=== PATIENT | male | born 1950 | race Asian ===

== ENCOUNTER 2016-09-26 11:52 | Emergency (ER) | payer OTHER ==
[~2016-09-26] VITALS: Ht 154.9 cm; Wt 72.6 kg
[~2016-09-26 11:52] MED LIST: DIPH-121 PO; ONDA4TAB10 SL
[2016-09-26 12:07] VITALS: BP 117/70
[2016-09-26] MEDS ORDERED: PRED-220 PO (12:35)
[2016-09-26] MEDS ORDERED: HYDR25CA75 PO (12:35)
[2016-09-26] MEDS ORDERED: MUPI22OI2 TP (12:35)
--- NOTE | 2016-09-26 12:35 | PHYS DOC ---
Past Medical History Past Medical History: No Pertinent History Past Surgical History: No Surgical History Alcohol Use: Occasionally Drug Use: None Adult General Chief Complaint Chief Complaint: SKIN RASH/ABSCESS [facility] HPI Patient is a 66 year old male presents emergency Department with a rash to his upper trunk, predominantly in his armpits into his face that began approximately 3 days ago. Patient reports that the rash itches. Patient denies any contact with anyone else with similar rash. He denies sleeping any different beds or locations. He denies any changes to his personal hygiene or laundry products. Patient himself does not have a history of atopy. Review of Systems Review of Systems Constitutional: Denies fever or chills [] Eyes: Denies change in visual acuity, redness, or eye pain [] HENT: Denies nasal congestion or sore throat [] Respiratory: Denies cough or shortness of breath [] Cardiovascular: No additional information not addressed in HPI [] GI: Denies abdominal pain, nausea, vomiting, bloody stools or diarrhea [] : Denies dysuria or hematuria [] Musculoskeletal: Denies back pain or joint pain [] Integument: Denies rash or skin lesions [] Neurologic: Denies headache, focal weakness or sensory changes [] Endocrine: Denies polyuria or polydipsia [] Allergies Allergies Allergies Coded Allergies Type Severity Reaction Last Updated Verified No Known Drug Allergies 03/23/16 No Physical Exam Physical Exam Constitutional: Well developed, well nourished, no acute distress, non-toxic appearance. [] HENT: Normocephalic, atraumatic, bilateral external ears normal, oropharynx moist, no oral exudates, nose normal. [] Eyes: PERRLA, EOMI, conjunctiva normal, no discharge. [] Neck: Normal range of motion, no tenderness, supple, no stridor. [] Cardiovascular:Heart rate regular rhythm, no murmur [] Lungs & Thorax: Bilateral breath sounds clear to auscultation [] Abdomen: Bowel sounds normal, soft, no tenderness, no masses, no pulsatile masses. [] Skin: Patches of raised, slightly erythematous skin to the patient's anterior trunk, predominantly in the anterior axillary regions and also slightly laterally to the chest melara. There is also some similar lesions to the anterior chest, bilateral upper arms from the patient's neck. There are no areas of coalescence. The rash is excoriated by itching. Back: No tenderness, no CVA tenderness. [] Extremities: No tenderness, no cyanosis, no clubbing, ROM intact, no edema. [] Neurologic: Alert and oriented X 3, normal motor function, normal sensory function, no focal deficits noted. [] Psychologic: Affect normal, judgement normal, mood normal. [] Current Patient Data Vital Signs Vital Signs Date Time Temp Pulse Resp B/P Pulse Ox O2 Delivery O2 Flow Rate FiO2 09/26/16 12:07 97.9 82 14 96 Room Air 97.9 EKG EKG [] Radiology/Procedures Radiology/Procedures [] Course & Med Decision Making Course & Med Decision Making Pertinent Labs and Imaging studies reviewed. (See chart for details) [] Dragon Disclaimer Dragon Disclaimer This electronic medical record was generated, in whole or in part, using a voice recognition dictation system. Departure Departure Impression: Primary Impression: Contact dermatitis Disposition: HOME, SELF-CARE Condition: GOOD Referrals: MYCHAL SHERIFF MD (PCP) Patient Instructions: Contact Dermatitis, [id number] Additional Instructions: 1. Take the medication as prescribed. 2. Avoid hot showers or hot baths as they can make the rash worse. Also avoid scratching as much as possible. 3. Review the discharge instructions for self-care and reasons to return the emergency department. 4. Follow-up with primary care doctor next week for reevaluation. Scripts Mupirocin (Mupirocin Ointment)22 Gm Oint...g.1 Soto TP TID WOUND CARE #1 TUBE Prov:ARMAND PARK 09/26/16 Hydroxyzine Pamoate 25 Mg [id number] Mg PO QID itching #20 CAP Prov:ARMAND PARK 09/26/16 Prednisone 10 Mg [id number] Mg PO UD PREDNISONE TAPER #39 TAB Ref 0 Take 3 tablets by mouth twice a day for 3 days, then take 2 tablets by mouth twice a day for 3 days, then take 1 tablet by mouth twice a day for 3 days, then take 1 tablet by mouth daily x 3 days, then stop. Prov:ARMAND PARK 09/26/16 ARMAND PARK Sep 26, 2016 12:35
== END 2016-09-26 13:01 | disposition home or self-care (01) ==
LOC: ER 11:52
DX: L25.9 Unspecified contact dermatitis, unspecified cause (principal)
CPT/HCPCS: 99283

== ENCOUNTER 2017-03-16 22:56 | Emergency (ER) | payer OTHER ==
[~2017-03-16] VITALS: Ht 162.6 cm; Wt 77.1 kg
[~2017-03-16 22:56] MED LIST changes: +HYDR25CA75 PO; +MUPI22OI2 TP; +PRED-220 PO
[2017-03-17] MEDS ORDERED: ONDANSETRON ODT 4 MG TAB.RAPDIS. PO ONE (00:15)
[2017-03-17] MEDS ORDERED: IV NORMAL SALINE 1000ML BAG 1,000 ML IV ONE ×3 (00:15→00:30)
[2017-03-17 00:29] LABS: BASO % 0 % (0-3); EOS % 1 % (0-3); HEMATOCRIT 45.6 % (39.0-53.0); HEMOGLOBIN 15.6 g/dL (13.0-17.5); LYMPH # 1.4 x10^3/uL (1.0-4.8); LYMPH % 6 % (24-48); MEAN CORPUSCULAR HEMOGLOBIN 32 pg (25-35); MEAN CORPUSCULAR HGB CONC 34 g/dL (31-37); MEAN CORPUSCULAR VOLUME 93 fL (79-100); MONO % 8 % (0-9); NEUT % 86 % (31-73); PLATELET COUNT 290 x10^3/uL (140-400); RED BLOOD COUNT 4.93 x10^6/uL (4.30-5.70); RED CELL DISTRIBUTION WIDTH 14.6 % (11.5-14.5)
[2017-03-17 00:34] LABS: BILIRUBIN,URINE NEGATIVE (NEG); GLUCOSE,URINE NEGATIVE (NEG); NITRITE,URINE NEGATIVE (NEG); PROTEIN,URINE 30 mg/dL (NEG-TRACE); UROBILINOGEN,URINE 0.2 mg/dL (0.2 mg/dL)
[2017-03-17 00:36] LABS: BACTERIA,URINE 0 /HPF (0-FEW); CREATININE 0.9 mg/dL (0.7-1.3); POTASSIUM 3.7 mmol/L (3.5-5.1); RBC,URINE OCC /HPF (0-2); SQUAMOUS EPITHELIAL CELL,UR FEW /LPF
[2017-03-17 00:42] LABS: ALBUMIN 3.9 g/dL (3.4-5.0); ALBUMIN/GLOBULIN RATIO 0.9 (1.0-1.7); TOTAL BILIRUBIN 0.7 mg/dL (0.2-1.0); TOTAL PROTEIN 8.2 g/dL (6.4-8.2)
[2017-03-17] MEDS ORDERED: ONDANSETRON PF 4 MG/2 ML VIAL. IV ONE (00:45)
[2017-03-17] MEDS ORDERED: ONDA4TAB10 SL (00:55)
[2017-03-17] MEDS ORDERED: HYOS0.1265 SL (00:55)
--- NOTE | 2017-03-17 00:55 | PHYS DOC ---
Past Medical History Past Medical History: No Pertinent History Past Surgical History: No Surgical History Alcohol Use: Occasionally Drug Use: None Adult General Chief Complaint Chief Complaint: ABDOMINAL PAIN HPI HPI 66-year-old Lebanese male with no chronic medical history now presents to the emergency department after nausea vomiting and diarrhea since 6 PM tonight. Patient was feeling well earlier today. He denies fevers chills sweats or shaking chills. He has no chronic medical problems or prior abdominal surgeries. His abdominal pain is crampy and intermittent and is now resolved. Review of Systems Review of Systems Constitutional: Denies fever or chills [] Eyes: Denies change in visual acuity, redness, or eye pain [] HENT: Denies nasal congestion or sore throat [] Respiratory: Denies cough or shortness of breath [] Cardiovascular: No additional information not addressed in HPI [] GI: Denies abdominal pain, nausea, vomiting, bloody stools or diarrhea [] : Denies dysuria or hematuria [] Musculoskeletal: Denies back pain or joint pain [] Integument: Denies rash or skin lesions [] Neurologic: Denies headache, focal weakness or sensory changes [] Endocrine: Denies polyuria or polydipsia [] Current Medications Current Medications Current Medications Medications (Trade) Dose Ordered Sig/Brad Start Time Stop Time Status Last Admin Dose Admin Info (Do NOT chart on this entry -- for MONITORING) 1 each PRN DAILY PRN 03/17/17 01:00 03/19/17 00:59 Iohexol (Omnipaque 300 Mg/ml) 75 ml 1X ONCE 03/17/17 01:00 03/17/17 01:01 DC 03/17/17 01:17 75 ML Ondansetron HCl (Zofran Odt) 4 mg 1X ONCE 03/17/17 00:15 03/17/17 00:19 DC Ondansetron HCl (Zofran) 4 mg 1X ONCE 03/17/17 00:45 03/17/17 00:46 DC 03/17/17 00:42 4 MG Sodium Chloride 1,000 ml @ 999 mls/hr 1X ONCE 03/17/17 00:30 03/17/17 01:30 DC 03/17/17 00:42 999 MLS/HR Allergies Allergies Allergies Coded Allergies Type Severity Reaction Last Updated Verified No Known Drug Allergies 03/23/16 No Physical Exam Physical Exam Well-appearing 66-year-old Lebanese male no acute distress resting comfortably alert communicative cooperative and appropriate. Clear lungs regular rate and rhythm no tachycardia no focal abdominal tenderness non-distended no mass or megaly normal bowel sounds no CVA tenderness benign abdominal exam. No inguinal mass or hernia. Constitutional: Well developed, well nourished, no acute distress, non-toxic appearance. [] HENT: Normocephalic, atraumatic, bilateral external ears normal, oropharynx moist, no oral exudates, nose normal. [] Eyes: PERRLA, EOMI, conjunctiva normal, no discharge. [] Neck: Normal range of motion, no tenderness, supple, no stridor. [] Cardiovascular:Heart rate regular rhythm, no murmur [] Lungs & Thorax: Bilateral breath sounds clear to auscultation [] Abdomen: Bowel sounds normal, soft, no tenderness, no masses, no pulsatile masses. [] Skin: Warm, dry, no erythema, no rash. [] Back: No tenderness, no CVA tenderness. [] Extremities: No tenderness, no cyanosis, no clubbing, ROM intact, no edema. [] Neurologic: Alert , no focal deficits noted. [] Psychologic: Affect normal, judgement normal, mood normal. [] Current Patient Data Vital Signs Vital Signs Date Time Temp Pulse Resp B/P (MAP) Pulse Ox O2 Delivery O2 Flow Rate FiO2 03/17/17 01:30 103 20 108/56 (73) 98 Room Air 03/17/17 01:00 2.0 03/16/17 23:27 98.5 98.5 Lab Values Laboratory Tests Test 03/17/17 00:01 White Blood Count 24.0 x10^3/uL (4.0-11.0) H Red Blood Count 4.93 x10^6/uL (4.30-5.70) Hemoglobin 15.6 g/dL (13.0-17.5) Hematocrit 45.6 % (39.0-53.0) Mean Corpuscular Volume 93 fL (79-100) Mean Corpuscular Hemoglobin 32 pg (25-35) Mean Corpuscular Hemoglobin Concent 34 g/dL (31-37) Red Cell Distribution Width 14.6 % (11.5-14.5) H Platelet Count 290 x10^3/uL (140-400) Neutrophils (%) (Auto) 86 % (31-73) H Lymphocytes (%) (Auto) 6 % (24-48) L Monocytes (%) (Auto) 8 % (0-9) Eosinophils (%) (Auto) 1 % (0-3) Basophils (%) (Auto) 0 % (0-3) Neutrophils # (Auto) 20.6 x10^3uL (1.8-7.7) H Lymphocytes # (Auto) 1.4 x10^3/uL (1.0-4.8) Monocytes # (Auto) 1.9 x10^3/uL (0.0-1.1) H Eosinophils # (Auto) 0.1 x10^3/uL (0.0-0.7) Basophils # (Auto) 0.0 x10^3/uL (0.0-0.2) Platelet Estimate Pending Urine Collection Type Clean catch Urine Color Yellow Urine Clarity Clear Urine pH 6.0 Urine Specific [place] 1.020 Urine Protein 30 mg/dL (NEG-TRACE) Urine Glucose (UA) Negative mg/dL (NEG) Urine Ketones (Stick) Negative mg/dL (NEG) Urine Blood Negative (NEG) Urine Nitrite Negative (NEG) Urine Bilirubin Negative (NEG) Urine Urobilinogen Dipstick 0.2 mg/dL (0.2 mg/dL) Urine Leukocyte Esterase Negative (NEG) Urine RBC Occ /HPF (0-2) Urine WBC 1-4 /HPF (0-4) Urine Squamous Epithelial Cells Few /LPF Urine Bacteria 0 /HPF (0-FEW) Urine Hyaline Casts Few /HPF Urine Mucus Marked /LPF Sodium Level 142 mmol/L (136-145) Potassium Level 3.7 mmol/L (3.5-5.1) Chloride Level 104 mmol/L (98-107) Carbon Dioxide Level 27 mmol/L (21-32) Anion Gap 11 (6-14) Blood Urea Nitrogen 17 mg/dL (8-26) Creatinine 0.9 mg/dL (0.7-1.3) Estimated GFR (Cockcroft-Gault) 85.0 BUN/Creatinine Ratio 19 (6-20) Glucose Level 109 mg/dL (70-99) H Calcium Level 9.0 mg/dL (8.5-10.1) Total Bilirubin 0.7 mg/dL (0.2-1.0) Aspartate Amino Transferase (AST) 31 U/L (15-37) Alanine Aminotransferase (ALT) 30 U/L (16-63) Alkaline Phosphatase 50 U/L (46-116) Total Protein 8.2 g/dL (6.4-8.2) Albumin 3.9 g/dL (3.4-5.0) Albumin/Globulin Ratio 0.9 (1.0-1.7) L Lipase 202 U/L (73-393) Laboratory Tests 03/17/17 00:01 Laboratory Tests 03/17/17 00:01 EKG EKG [] Radiology/Procedures Radiology/Procedures [] Course & Med Decision Making Course & Med Decision Making Pertinent Labs and Imaging studies reviewed. (See chart for details) Signs and symptoms consistent with gastroenteritis. Hemodynamically stable patient. IV fluids administered as well as Zofran. No active vomiting on reevaluation. No point tenderness of the abdomen. Patient is well-appearing with moist mucous membranes on reevaluation. CT of the abdomen and pelvis pending if results are unremarkable default diagnosis of viral gastroenteritis. We'll prescribe Zofran. Patient aware to drink plenty of fluids and follow-up with his doctor tomorrow. No further workup or treatment will be indicated and strict return precautions will be given. [] Dragon Disclaimer Dragon Disclaimer This electronic medical record was generated, in whole or in part, using a voice recognition dictation system. Departure Departure Impression: Primary Impression: Viral gastroenteritis Additional Impressions: Abdominal pain Diverticulosis Disposition: HOME, SELF-CARE Condition: IMPROVED Referrals: MYCHAL SHERIFF MD (PCP) Patient Instructions: Viral Gastroenteritis Additional Instructions: You have viral gastroenteritis. This is a viral syndrome that causes nausea and vomiting as well as crampy abdominal pain. Rest and drink plenty of fluids. Use Zofran under your tongue every 4 hours if needed for nausea as well as Levsin under your tongue times a day if needed for crampy abdominal pain. Follow-up with your doctor tomorrow and return immediately for new severe or worsening symptoms Scripts Ondansetron (ZOFRAN ODT) 4 Mg Tab.rapdis 1 TAB SL Q4HRS Y for VOMITING, #15 TAB Prov: LAUREN SPRINGER MD 03/17/17 Hyoscyamine Sulfate (LEVSIN-SL) 0.125 Mg Tab.subl 0.125 MG SL TID Y for crampy abdominal pain, #21 TAB Prov: LAUREN SPRINGER MD 03/17/17 Problem Qualifiers LAUREN SPRINGER MD Mar 17, 2017 00:55
[2017-03-17] MEDS ORDERED: CONTRAST GIVEN MC PRN (01:00)
[2017-03-17] MEDS ORDERED: IOHEXOL 300 MG/ML 75 ML VIAL IV ONE (01:00)
--- NOTE | 2017-03-17 01:59 | RAD ---
PQRS Compliance Statement: One or more of the following individualized dose reduction techniques were utilized for this examination: 1. Automated exposure control 2. Adjustment of the mA and/or kV according to patient size 3. Use of iterative reconstruction technique CT ABD PELV W/ IV CONTRST ONLY Clinical Indication: ABDOMEN PAIN TONIGHT Comparison: CT abdomen and pelvis with contrast the tumor 07/01/2016. Technique: Helical CT imaging of the abdomen and pelvis is performed after 75 cc Omnipaque 300 IV contrast. Oral contrast not given. Findings: Respiratory motion artifact in the lung bases an upper abdomen degrades image quality. There is moderate atelectasis or scarring in the lower lobes, similar to prior study. There is a nodule along the right major fissure that is slightly larger or is blurred due to motion artifact. Cardiac size upper limits of normal. Liver, gallbladder, spleen, pancreas, and adrenal glands are normal. Abdominal aorta normal caliber. Right upper pole and right parapelvic cysts are stable. Kidneys enhance symmetrically. Tiny cortical cysts of the left kidney in the lower pole are stable. No hydronephrosis. Evaluation of bowel may be limited without oral contrast. Stomach unremarkable. No dilated small bowel. There are colon diverticula. No colon wall thickening. The appendix is normal. No abdominal adenopathy or free fluid. Urinary bladder is normal. Prostate size normal. No pelvic free fluid. No acute bone abnormality. IMPRESSION: 1. No acute abdominal or pelvic abnormality. 2. Moderate atelectasis or scarring in the lower lobes, similar to prior study. 3. Stable bilateral renal cysts. 4. Colon diverticulosis without evidence of diverticulitis. Electronically signed by: Thomas Lyons MD (03/17/2017 1:56 AM) [id number]
[2017-03-17 02:30] VITALS: BP 104/57
[2017-03-17 04:13] LABS: % EOS 1 % (0-5); PLT ESTIMATE ADEQUATE (ADEQUATE); TOXIC VACUOLATION SLIGHT
== END 2017-03-17 03:05 | disposition home or self-care (01) ==
LOC: ER 22:56
DX: K57.30 Diverticulosis of large intestine without perforation or abscess without bleeding (principal); A08.4 Viral intestinal infection, unspecified
CPT/HCPCS: 36415; 74177; 80053; 81001; 83690; 85007; 85025; 96361; 96374; 99285; J2405; J7030; Q9967